=== PATIENT | female | born 1965 | race Caucasian/White ===

== ENCOUNTER → 2024-02-06 08:41 | Outpatient (BNVA) | payer SELFPAY | PROVIDERS: Family Provider Family Medicine; PCP Family Medicine; Visit Provider Clinical Nurse Specialist Adult Health | DX: R81 Glycosuria (principal); R30.0 Dysuria; R31.9 Hematuria, unspecified; E78.5 Hyperlipidemia, unspecified | CPT/HCPCS: 80053; 80061; 81000; 83036; 85025; 87086 ==

== ENCOUNTER → 2024-10-25 12:41 | Outpatient (BNVA) | payer SELFPAY | PROVIDERS: Family Provider Family Medicine; PCP Family Medicine; Visit Provider Family Medicine | DX: Z00.00 Encounter for general adult medical examination without abnormal findings (principal); R73.03 Prediabetes; Z51.81 Encounter for therapeutic drug level monitoring; Z13.6 Encounter for screening for cardiovascular disorders; H61.22 Impacted cerumen, left ear; J32.9 Chronic sinusitis, unspecified | CPT/HCPCS: 80053; 80061; 83036; 85025 ==

== ENCOUNTER → 2024-12-22 16:05 | Outpatient (BNVA) | payer SELFPAY | PROVIDERS: Family Provider Family Medicine; PCP Family Medicine; Visit Provider Family Medicine | DX: R39.9 Unspecified symptoms and signs involving the genitourinary system (principal) | CPT/HCPCS: 81000 ==

== ENCOUNTER 2025-01-24 13:47 | Outpatient (CLI) | payer SELFPAY ==
--- NOTE | 2025-01-24 13:58 | XRR_ITS ---
PROCEDURE INFORMATION: Exam: XR Lumbosacral Spine Exam date and time: 01/24/2025 2:03 PM Age: 59 years old Clinical indication: Low back pain radiating down RT leg into foot for 6 weeks after picking up dog; Additional info: Lumbar radiculopathy TECHNIQUE: Imaging protocol: Radiologic exam of the lumbosacral spine. Views: 2 or 3 views. COMPARISON: No relevant prior studies available. FINDINGS: Bones/joints: Normal alignment. Loss of intervertebral disc space height L3-L4 along with endplate degenerative changes. Marginal spurring at multiple levels. No acute fracture. Soft tissues: Unremarkable. Vasculature: Aortoiliac atherosclerotic disease. XR/XR lumbar spine 2-3V* [id number] IMPRESSION: Multilevel lumbar spondylosis without evidence of acute osseous abnormality.
== END 2025-01-24 13:48 | disposition home or self-care (01) ==
PROVIDERS: PCP Family Medicine; Visit Provider Family Medicine
DX: M47.27 Other spondylosis with radiculopathy, lumbosacral region (principal); M25.78 Osteophyte, vertebrae
CPT/HCPCS: 72100

== ENCOUNTER 2025-02-02 13:00 | Outpatient (CLI) | payer SELFPAY ==
--- NOTE | 2025-02-02 13:06 | MR_ITS ---
WS: [id number] MRI LUMBAR SPINE NONCONTRAST TECHNIQUE: Sagittal T1, T2 and STIR imaging. Axial T1 and T2 imaging. CLINICAL INFORMATION: Lumbar radiculopathy COMPARISON: None. FINDINGS: Mild lumbar curve. No acute compression. Disc narrowing worse at L3-4. Large disc extrusion posterior to the LEFT L4 vertebral body. Disc material measures approximately 8.6 x 13.5 mm AP by craniocaudal. Impingement on the LEFT subarticular recess with moderate to severe central canal stenosis just above the L4-5 disc space. Narrowing of the subarticular recess bilaterally. Additional disc bulging at the L4-5 disc space with a RIGHT subarticular protrusion impinges the traversing RIGHT L5 nerve root in the subarticular recess. Small amount of extruded disc material in the RIGHT subarticular recess. Extruded disc material measures 3.4 x 7.0 mm AP by craniocaudal. L1-L2: Mild annular bulging. Mild facet arthropathy. Spinal canal and foramen are patent. L2-L3: Mild annular bulging with slight effacement of the ventral thecal sac. Impingement RIGHT subarticular recess and traversing RIGHT L3 nerve root. Moderate facet arthropathy. Small bilateral foraminal protrusions with mild LEFT greater than RIGHT foraminal narrowing. L3-L4: Disc desiccation. Mild disc bulging. Impingement RIGHT subarticular recess. Mild to moderate central canal stenosis. Moderate facet arthropathy. Mild RIGHT greater than LEFT foraminal narrowing. L4-L5: Extruded disc material posterior to the LEFT L4 vertebral body in the subarticular recess described above. Additional central and RIGHT subarticular disc bulging with a small amount of extruded material in the RIGHT subarticular recess extending just inferior to the interspace. Moderate to severe narrowing of the thecal sac. Moderate facet arthropathy. RIGHT foraminal protrusion with mild RIGHT foraminal narrowing. LEFT foramen is patent. L5-S1: Mild disc bulging with central protrusion and mild facet arthropathy. Foramen are patent. Slight impingement of traversing LEFT greater than RIGHT S1 nerve roots. Visualized pelvic bony structures: Normal. Paravertebral soft tissues: Normal. MR/MR lumbar spine wo con* [id number] IMPRESSION: 1. Large disc extrusion posterior to the L4 vertebral body eccentric to the LE FT with moderate to severe effacement of the thecal sac described above. Recomm end spine surgery consultation. 2. In addition, at the L4-5 interspace there is a central and RIGHT subarticul ar disc protrusion with a small amount of extruded disc material in the RIGHT s ubarticular recess. Impingement of traversing RIGHT L5 nerve root.
== END 2025-02-02 13:01 | disposition home or self-care (01) ==
LOC: RAD 13:00
PROVIDERS: PCP Family Medicine; Visit Provider Family Medicine
DX: M51.16 Intervertebral disc disorders with radiculopathy, lumbar region (principal); M48.061 Spinal stenosis, lumbar region without neurogenic claudication; M51.17 Intervertebral disc disorders with radiculopathy, lumbosacral region; M47.897 Other spondylosis, lumbosacral region
CPT/HCPCS: 72148

== ENCOUNTER → 2025-02-24 08:18 | Outpatient (BNVA) | payer SELFPAY | PROVIDERS: PCP Family Medicine; Visit Provider Orthopaedic Surgery | DX: M48.062 Spinal stenosis, lumbar region with neurogenic claudication (principal); M54.16 Radiculopathy, lumbar region; M53.87 Other specified dorsopathies, lumbosacral region | CPT/HCPCS: 72110 ==